=== PATIENT | female | born 1980 | race Two or more races ===

== ENCOUNTER 2019-11-12 10:45 | Inpatient (IN) | payer OTHER ==
[~2019-11-12] VITALS: Ht 165.1 cm; Wt 120.2 kg
[2019-11-15] MEDS ORDERED: GLYCOLAX119 GM PO (08:04)
[2019-11-15] MEDS ORDERED: GLYCOLAX119 GM (08:05)
== END 2019-11-19 09:24 | disposition home or self-care (01) | DRG 331 ==
LOC: SURH 11-15 05:44 → O/R 11-15 05:44 → SURH 11-15 13:10
PROVIDERS: ADMIT Colon & Rectal Surgery
PROC: 07TB4ZZ Resection of Mesenteric Lymphatic, Percutaneous Endoscopic Approach (ICD-10-PCS; 2019-11-15)
PROC: 0DTF4ZZ Resection of Right Large Intestine, Percutaneous Endoscopic Approach (ICD-10-PCS; principal; 2019-11-15 07:30)
DX: C18.1 Malignant neoplasm of appendix (principal); R59.0 Localized enlarged lymph nodes

== ENCOUNTER 2020-11-18 08:35 | Day surgery (SDC) | payer OTHER ==
[~2020-11-18 08:35] MED LIST: GLYCOLAX119 GM; GLYCOLAX119 GM PO
== END 2020-11-18 15:00 | disposition home or self-care (01) ==
LOC: AMB-ENDOS 08:35
PROVIDERS: ATTEND Colon & Rectal Surgery
DX: D12.8 Benign neoplasm of rectum (principal); K64.8 Other hemorrhoids; Z20.822 Contact with and (suspected) exposure to COVID-19; Z12.11 Encounter for screening for malignant neoplasm of colon

== ENCOUNTER 2023-01-18 09:44 | Day surgery (SDC) | payer OTHER | END 2023-01-18 15:20 | disposition home or self-care (01) | LOC: AMB-ENDOS 09:44 | PROVIDERS: ATTEND Colon & Rectal Surgery | DX: Z86.012 Personal history of benign carcinoid tumor (principal); R19.4 Change in bowel habit; Z12.11 Encounter for screening for malignant neoplasm of colon; R10.11 Right upper quadrant pain; K64.8 Other hemorrhoids; Z20.822 Contact with and (suspected) exposure to COVID-19; Z88.0 Allergy status to penicillin; Z88.6 Allergy status to analgesic agent ==